=== PATIENT | male | born 1950 | race Caucasian/White ===

== ENCOUNTER 2016-07-04 12:08 | Emergency (ER) | payer MEDICARE ==
[~2016-07-04] VITALS: Ht 182.9 cm; Wt 112.3 kg
[~2016-07-04 12:08] MED LIST: ASPI-973 PO; CHOL3000 PO; FUR20 PO; IBUP800T28 PO; INSU100I SC; INSU100I13 SUBQ; LOSA25TA21 PO; METF500T4 PO; METO25TA6 PO; PRAV40TA PO; TAMS0.4C98 PO
[2016-07-04 12:11] VITALS: BP 163/89; PULSE 81; RESP 15; O2SAT 100
--- NOTE | 2016-07-04 13:01 | ED.REPORT ---
HPI-Psychiatric Illness Date of Service Jul 04, 2016 ED Provider: Pollo Palmer MD Mr. Faulkner is a 66 y/o man who presents today for suicidal ideation. He was talking to his creative technologist this morning who encouraged him to seek help in the emergency department or he would call 911. For the past week or so, he has been feeling like if he killed himself no one would notice. He has these thoughts every day at night. He could use the insulin and take too much. The plan comes and goes in his mind. He has been feeling this way for the past 8 months. He states that he is very independent given the circumstances and does not like getting help from others. He has found it increasingly hard to do somethings like tie his shoes, which causes him additional emotional stress. The only thing keeping him alive is his 90 y/o mother for whom he is the primary caregiver. He also takes care of his sister, which causes him stress. His 6 years ago and he has not had a significant other since then. His spiritual connection is the outdoors. He has spent less time outdoors with his own surgeries and then his grandson at 17 y/o in an accident a week before his birthday. His son lives in [facility] but is planning to visit in July. He lives in his car for the past year and has been trying to get housing the entire time. He cannot climb stairs. 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 It is getting harder for him to swim. He has not sought help before. He is not able to sleep and has a decreased appetite for junk foods. Little things are starting to bother him more and more , everything is starting to pile on. He lost interest in things he used to like. He feels guilty that "I've been letting my friends down." He has forgetfulness and ridicules himself. He states that he does not even want to be here right now so he is unsure about staying in the hospital for treatment. Physically he has a decreased appetite and urinary urgency with urinary incontinence if he does not make it to the bathroom in time. He has chronic lower extremity edema for which he takes furosemide. Nursing Notes Stated Complaint: SUICIDAL IDEATION Chief Complaint: Psychiatric Complaint Nursing Notes Reviewed: Yes Allergies: Coded Allergies: Penicillins (Verified Allergy, Severe, ANAPHYLAXIS, 07/04/16) Scheduled Aspirin (Aspirin) 81 Mg Tablet 81 MG PO DAILY Furosemide (Furosemide) 20 Mg Tab 20 MG PO DAILY Ibuprofen (Ibuprofen) 800 Mg Tablet 800 MG PO BID Insulin Aspart (NovoLOG U-100 Pen) 100 Unit/Ml Insuln.pen 17-27 UNIT SC AC Insulin Glargine (Lantus U100 Solostar Insulin Pen) 100 Unit/1 Ml Insuln.pen 10 UNIT SUBQ HS Losartan Potassium (Losartan Potassium) 25 Mg Tablet 50 MG PO DAILY Metformin (Metformin) 500 Mg Tablet 500 MG PO BID Metoprolol Tartrate (Metoprolol Tartrate) 25 Mg Tablet 25 MG PO BID Pravastatin (Pravastatin) 40 Mg Tablet 40 MG PO HS Tamsulosin (Flomax) 0.4 Mg Capsule 0.4 MG PO DAILY Miscellaneous Medications Cholecalciferol (Vitamin D3) (Vitamin D3) 3,000 Unit Tablet 3,000 UNIT PO General Time Seen by MD: 12:41 Chief Complaint Suicidal ideation Hx Obtained From: Patient Risk-Psychiatric Illness Suicide Risk Stratification Suicide Risk Factors - Adult: No: Alcohol use, Family Hx of Suicide, Previous attempt, Prior psych admission, Substance abuse RF Statements: Risk factors reviewed Past Medical History Past Medical History Chronic right knee pain, 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 home health coming in- scheduled for 04/02- day after tomorrow Ambulatory Status Independent Review of Systems Constitutional: Reports: Fatigue Respiratory: Denies: Shortness of breath Cardiovascular: Denies: Chest pain GI: Reports: Abdominal pain, Denies: Diarrhea, Vomiting Skin: Reports Itching (generalized, dry skin), Denies Bruising, Denies Rash Neurologic: Reports: Bladder dysfunction, Numbness (in bilateral hands) Psychiatric: Reports: Anxiety, Depression, Insomnia, Stress, Suicidal ideation , Denies: Delusional, Hallucinations, auditory, Hallucinations, visual, Homicidal ideation Physical Exam Initial Vital Signs Vital Signs (First) Date Time Temp Pulse Resp B/P Pulse Ox O2 Delivery O2 Flow Rate FiO2 07/04/16 12:11 36.1 81 15 163/89 100 Initial VS: Reviewed Head / Eyes: Atraumatic, Normocephalic ENT: Mucous membranes moist, Conjunctiva normal, No scleral icterus Neck: Supple, Non-tender, Full range of motion Respiratory: Breath sounds normal, Clear to auscultation, No respiratory distress Cardiovascular: Regular rate & rhythm, Heart sounds normal, Intact distal pulses Abdomen / GI: Soft, Non-tender, No guarding, No rebound, No distention Skin: Warm, Dry, No cyanosis Right Leg / Calf: Positive: Swelling present... (Mild) Left Leg / Calf: Positive: Swelling present... (Mild) Interpretation & Diagnostics Interpretation & Diagnostics: Urine tox dip: Benzodiazepines (BZO) Negative Barbituates (BAR) Negative Cocaine (KORY) Negative Marijuana (THC) Negative Methamphetamine (MET) Negative Opiates (OPI) Negative Methadone (MTD) Negative Tricyclic Antidepressants (TCA) Negative Oxycodone (OXY) Negative Ecstasy (MDMA) Negative Phencyclidine (PCP) Negative Amphetamines (AMP) Negative Urine dip: Reagent Strip Chemstrip 10 with SG Bedside Urine Specific Excel 1.010 Bedside Urine pH 5 Bedside Urine Leukocyte Esterase Negative Bedside Urine Nitrite Negative Bedside Urine Protein Negative Bedside Urine Glucose Normal Bedside Urine Ketones + Small Bedside Urine Urobilinogen Normal Bedside Urine Bilirubin Negative Bedside Urine Occult Blood Trace Urine to Lab Yes Lab Results Interpretation Test 07/04/16 13:44 Hold Urine Received (Received) Re-Eval/Medical Decision Med Decision/Clinical Course 1. Suicidal ideation -He has a plan to take too much insulin -Pt denies homicidal ideation -Pt is actively seeking help -solid waste collection worker consult in progress -Urine toxicity dip is negative -Alcohol breathalizer 0 2. urinary incontinence -Pt had urteral stones in March and April 2016 Consultation : Consulted With: solid waste collection worker Note: Discussed pt with long term care social worker, Lorena Longo, and she recommends inpatient treatment for the pt. DDx includes but not limited to: major depressive disorder, dysthymia, bipolar disorder, anxiety, personality disorder Discharge & Departure Impression: Primary Impression: Suicidal ideation Referrals: Frannie Chi MD (PCP) Care Transferred to: Dr. Rowland Care Transferred at: 15:17 Attending Statement The patient was seen and examined together with Dr. Pollack on 07/04/16 and I agree with the history, exam and plan as outlined in the note above. copies to: Frannie Chi MD, Marissa L DO Jul 04, 2016 13:01 Pollo Palmer MD Jul 04, 2016 15:17
[2016-07-04 15:31] LABS: BASOPHILS % (AUTO) 0 % (0-3); EOSINOPHILS % (AUTO) 5.9 % (0-5); MONOCYTES % (AUTO) 8.4 % (4-12); Mean Corpuscular Hemoglobin 29.3 pg (27.0-35.0); Mean Corpuscular Volume 87.1 fL (81-100); NEUTROPHILS % (AUTO) 61.3 % (40-74); Platelet Count 166 bil/L (150-400)
[2016-07-04 16:14] LABS: APPEARANCE,URINE CLEAR (CLEAR,HAZY); COLOR,URINE YELLOW (YELLOW)
[2016-07-04 16:15] LABS: OCCULT BLOOD,URINE NEGATIVE (NEGATIVE); UROBILINOGEN,URINE NORMAL (NORMAL)
[2016-07-04] MEDS ORDERED: INSLIS SUBQ (17:31)
[2016-07-04] MEDS ORDERED: Insulin LISPRO 300 Unit/3 mL Inj SUBQ ONE (17:35)
[2016-07-04 17:44] VITALS: BP 151/59; PULSE 73; RESP 20; O2SAT 95
[2016-07-04] MEDS ORDERED: METF-413 PO (19:43)
[2016-07-04] MEDS ORDERED: LOSA50TA37 PO (19:43)
[2016-07-04] MEDS ORDERED: LORA10CA PO (19:58)
[2016-07-04] MEDS ORDERED: [UNRECOGNIZED DRUG - CODE] PO (20:44)
[2016-07-04] MEDS ORDERED: Insulin GLARgine 100 Unit/mL Syringe SUBQ SCH (21:00)
[2016-07-04 23:17] VITALS: BP 134/65; PULSE 67; RESP 18; O2SAT 94
[2016-07-04 23:28] VITALS: BP 134/65; PULSE 67; RESP 18; O2SAT 94
== END 2016-07-04 23:29 | disposition short-term general hospital (02) ==
LOC: SED 12:08
DX: F32.9 Major depressive disorder, single episode, unspecified (principal); R45.851 Suicidal ideations; E11.9 Type 2 diabetes mellitus without complications; E78.5 Hyperlipidemia, unspecified; I10 Essential (primary) hypertension; I65.29 Occlusion and stenosis of unspecified carotid artery; Z86.73 Personal history of transient ischemic attack (TIA), and cerebral infarction without residual deficits; Z59.0 Homelessness; Z79.82 Long term (current) use of aspirin; Z79.4 Long term (current) use of insulin; Z79.84 Long term (current) use of oral hypoglycemic drugs; Z88.0 Allergy status to penicillin
CPT/HCPCS: 36415; 80053; 81000; 82075; 82948; 84443; 85025; 99285; J1815

== ENCOUNTER 2016-07-28 13:21 | Emergency (ER) | payer MEDICARE ==
[~2016-07-28] VITALS: Ht 182.9 cm; Wt 110.9 kg
[~2016-07-28 13:21] MED LIST changes: +INSLIS SUBQ; -INSU100I SC; +LORA10CA PO; -LOSA25TA21 PO; +LOSA50TA37 PO; +METF-413 PO; -METF500T4 PO; -TAMS0.4C98 PO; +[UNRECOGNIZED DRUG - CODE] PO
[2016-07-28 13:24] VITALS: BP 172/84; PULSE 87; RESP 10; O2SAT 91
--- NOTE | 2016-07-28 13:42 | ED.REPORT ---
HPI-URI / Cough / Cold Date of Service Jul 28, 2016 ED Provider: Ruby Elliott History of Present Illness: coughing, wheezing headache for 3 or 4 days. Settled in chest. bought mucinex. no help. [facility] is primary care. no hx of asthma. not sleeping well. dm takes insulin, right knee replacement. decreased oral intake decreased bowel movement prune juice no help Nursing Notes Stated Complaint: COLD SYMPTOMS Chief Complaint: Respiratory Complaints Nursing Notes Reviewed: Yes Allergies: Coded Allergies: Penicillins (Verified Allergy, Severe, ANAPHYLAXIS, 07/04/16) Scheduled Aspirin (Aspirin) 81 Mg Tablet 81 MG PO HS Cholecalciferol (Vitamin D3) (Vitamin D3) 3,000 Unit Tablet 3,000 UNIT PO QAM Furosemide (Furosemide) 20 Mg Tab 20 MG PO QAM Ibuprofen (Ibuprofen) 800 Mg Tablet 800 MG PO BID Insulin Glargine (Lantus U100 Solostar Insulin Pen) 100 Unit/1 Ml Insuln.pen 10 UNIT SUBQ HS Insulin Human Lispro (HumaLOG U100 Insulin Vial) 100 Unit/Ml Unit 1 UNIT SUBQ ACHS Check blood sugars before meals and at bedtime. Use correction factor only before meals. Blood Sugar Lispro Correction: 4 units 100-128, 8 units 128-180, 12-15 units for blood sugar greater than 180 depending on meals Loratadine (Claritin) 10 Mg Capsule 10 MG PO QAM Losartan Potassium (Losartan Potassium) 50 Mg Tablet 50 MG PO HS Metformin ER (Fortamet) 1,000 Mg Tab.er.24 1,000 MG PO BID Metoprolol Tartrate (Metoprolol Tartrate) 25 Mg Tablet 25 MG PO BID Phenylephrine HCl (Sinus PE Decongestant) 10 Mg Tablet 10 MG PO HS Pravastatin (Pravastatin) 40 Mg Tablet 40 MG PO HS General Time Seen by MD: 13:32 Chief Complaint Cough, productive... 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 07/28/2016 Ambulatory Status Independent Review of Systems Basic Review of Systems Cardiovascular: No chest pain, No dyspnea on exertion, No orthopnea, No parox noct dyspnea, No palpitations Hematologic: No bleeding, No bruising Psychiatric: Normal thought content Physical Exam Initial Vital Signs Vital Signs (First) Date Time Temp Pulse Resp B/P Pulse Ox O2 Delivery O2 Flow Rate FiO2 07/28/16 13:24 37.4 87 10 172/84 91 Room Air Initial VS: Reviewed, Vital signs normal Head / Eyes: Atraumatic, Normocephalic, PERRL Neck: Supple, Non-tender, Full range of motion Cardiovascular: Regular rate & rhythm, Heart sounds normal, Intact distal pulses Abdomen / GI: Soft, Non-tender, No guarding, No rebound, No distention Back: No CVA tenderness Lymphatic: No lymphadenopathy Extremities: Vascular intact, Neuro intact, No swelling, No tenderness Skin: Warm, Dry, No cyanosis Neurologic: Alert, Oriented, Nonfocal Psychiatric: Mood/affect normal, Behavior normal, Normal thought content General/Constitutional: Awake, Alert, No acute distress, Well appearing, Well developed, Well hydrated, Well nourished, Cooperative, Not toxic appearing ENT: Atraumatic, Airway patent, Mucous membranes moist, Pharynx NL Diminished Breath Sounds: Positive: Decreased bilateral Rales / Rhonchi: Positive: Rhonchi coarse L, Rhonchi coarse R Head / Eyes: Atraumatic, Normocephalic, PERRL, EOMI Cardiovascular: Heart rate NL, Regular rhythm, Heart sounds NL, No gallop Interpretation & Diagnostics Lab Results Interpretation Result Diagram: 07/28/16 1400 07/28/16 1400 Test 07/28/16 14:00 White Blood Count 5.3th/mm3 (3.8-10.1) Red Blood Count 4.69mil/mm3 (4.40-5.80) Hemoglobin 13.5g/dL (13.8-17.2) Hematocrit 40.7% (41.0-50.0) Mean Corpuscular Volume 86.8fL (81-100) Mean Corpuscular Hemoglobin 28.8pg (27.0-35.0) Mean Corpuscular Hemoglobin Concent 33.2% (32.0-37.0) Red Cell Distribution Width 13.9% (12.3-15.4) Platelet Count 152bil/L (150-400) Neutrophils (%) (Auto) 70.8% (40-74) Lymphocytes (%) (Auto) 14.8% (14-46) Monocytes (%) (Auto) 9.1% (4-12) Eosinophils (%) (Auto) 4.9% (0-5) Basophils (%) (Auto) 0.2% (0-3) Sodium Level 138mEq/L (134-144) Potassium Level 3.9mEq/L (3.5-5.2) Chloride Level 99mEq/L (97-108) Carbon Dioxide Level 23mmol/L (18-29) Blood Urea Nitrogen 21mg/dL (8-27) Creatinine 0.93mg/dL (0.76-1.27) Estimat Glomerular Filtration Rate 86mL/min (>59) Glucose Level 185mg/dL (60-99) Lactic Acid Level 1.7mmol/L (0.4-2.0) Calcium Level 8.9mg/dL (8.5-10.1) Total Bilirubin 0.5mg/dL (0.0-1.2) Aspartate Amino Transf (AST/SGOT) 15U/L (0-50) Alanine Aminotransferase (ALT/SGPT) 17U/L (0-44) Alkaline Phosphatase 56U/L (25-160) Total Protein 6.9g/dL (6.4-8.4) Albumin 4.5g/dL (3.4-5.0) X-Ray Chest Interpretation Chest Xray Interpretation: nges and devices: None. Lungs and pleura: No pleural effusions or pneumothorax. Lungs are clear except for a subtle infiltrate in the right lower lobe. Mediastinum: Mediastinal contours are normal. Heart size is normal. Bones and chest wall: No suspicious bony abnormalities. Soft tissues appear unremarkable. IMPRESSION: Infiltrate right lower lobe thought to be present with some increased density over the thoracic spine and indistinctness of the right hemidiaphragm seen only in the lateral view. Re-Eval/Medical Decision Med Decision/Clinical Course Med Decision/Clinical Course: 66 year old male presents for evualation of cough. Patient reports huge improvement after duoneb. Chest x-ray indicates pneumonia. Exam does not indicate an empyema, asthma or pneumothorax. Discharge & Departure Impression: Primary Impression: Pneumonia Aspiration pneumonia type: unspecified Laterality: right Lung location: lower lobe of lung Disposition: Home Patient Instructions: Community-acquired Pneumonia (ED) Additional Instructions: The chest x-ray indicates a right lower lobe pneumonia.. Start azithromycin daily for the next 5 days. You have had a huge improvement in your lung function with the nebulizer. You are being provided an inhaler with the same medication. Also a small amount of hydrocodone to take at night to help with the cough. #6. Please follow with primary care for a recheck later this week. REIMBURSEMENT ANALYST has provided some resources that provide meals Referrals: Frannie Chi MD (PCP) EDSupervising Provider for APC: Shiv Rowland MD copies to: Frannie Chi MD, Sue ARNP Jul 28, 2016 13:42
[2016-07-28] MEDS ORDERED: Albuterol-Ipratropium 3 mL Inhalation Solution NEB ONE (13:45)
[2016-07-28 14:02] VITALS: PULSE 85; RESP 14; O2SAT 96
[2016-07-28 14:03] LABS: BASOPHILS % (AUTO) 0.2 % (0-3); EOSINOPHILS % (AUTO) 4.9 % (0-5); MONOCYTES % (AUTO) 9.1 % (4-12); Mean Corpuscular Hemoglobin 28.8 pg (27.0-35.0); Mean Corpuscular Volume 86.8 fL (81-100); NEUTROPHILS % (AUTO) 70.8 % (40-74); Platelet Count 152 bil/L (150-400)
--- NOTE | 2016-07-28 15:04 | DRSVH ---
PROCEDURE: X-RAY CHEST, TWO VIEWS ([id number]) INDICATIONS: cough TECHNIQUE: 2 views of the chest were acquired. COMPARISON: None. FINDINGS: Surgical changes and devices: None. Lungs and pleura: No pleural effusions or pneumothorax. Lungs are clear except for a subtle infiltr ate in the right lower lobe. Mediastinum: Mediastinal contours are normal. Heart size is normal. Bones and chest wall: No suspicious bony abnormalities. Soft tissues appear unremarkable. IMPRESSION: Infiltrate right lower lobe thought to be present with some increased density over the th oracic spine and indistinctness of the right hemidiaphragm seen only in the lateral view. Dictated by: Isrrael Grider M.D. on 07/28/2016 at 15:01 Approved by: Isrrael Grider M.D. on 07/28/2016 at 15:02
[2016-07-28 15:18] VITALS: BP 154/77; PULSE 95; RESP 16; O2SAT 98
[2016-07-28 15:28] VITALS: BP 154/77; PULSE 95; RESP 16; O2SAT 98
== END 2016-07-28 15:20 | disposition home or self-care (01) ==
LOC: SED 13:21
DX: J18.9 Pneumonia, unspecified organism (principal); E11.9 Type 2 diabetes mellitus without complications; I10 Essential (primary) hypertension; Z79.899 Other long term (current) drug therapy; Z86.73 Personal history of transient ischemic attack (TIA), and cerebral infarction without residual deficits; Z59.0 Homelessness; Z88.0 Allergy status to penicillin; Z79.4 Long term (current) use of insulin; Z79.84 Long term (current) use of oral hypoglycemic drugs
CPT/HCPCS: 36415; 71020; 80053; 83605; 85025; 94664; 99284; J7620

== ENCOUNTER 2016-08-21 06:36 | Emergency (ER) | payer MEDICARE ==
[2016-08-21 06:47] VITALS: BP 153/86; PULSE 76; RESP 14; O2SAT 94
[2016-08-21] MEDS ORDERED: 0.9% Sodium Chloride 1,000 ML IV ONE (07:37)
--- NOTE | 2016-08-21 07:37 | ED.REPORT ---
HPI-Abd Pain M 40 and Over Date of Service Aug 21, 2016 ED Provider: Doc,Ed MD The patient is a 66 year old male with history of diabetes mellitus, hypertension, and hyperlipidemia who presents to the emergency department complaining of vomiting that began yesterday afternoon. He has been unable to keep fluids or solids down. He has not had a bowel movement since yesterday. He has not been passing gas. He denies abdominal pain, nausea, diarrhea, fever or chills. He has not had similar symptoms in the past. The patient is currently homeless and living in his car. He has been in his car for the last 7 months after he was evicted from a room he was renting. He reports feeling depressed due to his physical condition and current living situation. Nursing Notes Stated Complaint: VOMITING Chief Complaint: General Complaint Nursing Notes Reviewed: Yes Allergies: Coded Allergies: Penicillins (Verified Allergy, Severe, ANAPHYLAXIS, 08/21/16) Scheduled Aspirin (Aspirin) 81 Mg Tablet 81 MG PO HS Cholecalciferol (Vitamin D3) (Vitamin D3) 3,000 Unit Tablet 3,000 UNIT PO QAM Furosemide (Furosemide) 20 Mg Tab 20 MG PO QAM Ibuprofen (Ibuprofen) 800 Mg Tablet 800 MG PO BID Insulin Glargine (Lantus U100 Solostar Insulin Pen) 100 Unit/1 Ml Insuln.pen 10 UNIT SUBQ HS Insulin Human Lispro (HumaLOG U100 Insulin Vial) 100 Unit/Ml Unit 1 UNIT SUBQ ACHS Check blood sugars before meals and at bedtime. Use correction factor only before meals. Blood Sugar Lispro Correction: 4 units 100-128, 8 units 128-180, 12-15 units for blood sugar greater than 180 depending on meals Loratadine (Claritin) 10 Mg Capsule 10 MG PO QAM Losartan Potassium (Losartan Potassium) 50 Mg Tablet 50 MG PO HS Metformin ER (Fortamet) 1,000 Mg Tab.er.24 1,000 MG PO BID Metoprolol Tartrate (Metoprolol Tartrate) 25 Mg Tablet 25 MG PO BID Phenylephrine HCl (Sinus PE Decongestant) 10 Mg Tablet 10 MG PO HS Pravastatin (Pravastatin) 40 Mg Tablet 40 MG PO HS General Time Seen by MD: 07:36 Chief Complaint Other (vomiting) Hx Obtained From: Patient Arrived By: Walk-in Sudden in Onset?: Yes Onset Occurred: Yesterday Symptom Duration: Since onset Progression since Onset: Constant, Gradually worsening Severity: Current: No pain currently Severity: Maximum: No pain Recent Healthcare: No recent doctor visit, No recent hospitalization Similar Sx Previous: No Past Medical History Past Medical History Chronic right knee pain, 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 Carotid artery stenosis s/p endarterectomy Reports: Diabetes mellitus, Hyperlipidemia, Hypertension, Stroke Past Surgical History Right knee surgery- with metallic patella Wrist surgery Right carotid endarterectomy with shunt and patch Reports: Tonsillectomy Family History Noncontributory Smoking History Never Smoker Social History The patient is currently living in his car Alcohol Use: Denies alcohol use Drug Use: Denies drug use Other Social History: Local resident, Homeless Occupation Ambulatory Status Independent Review of Systems Review of Systems Note: no bowel movements, not passing gas Constitutional: Denies: Chills, Fever GI: Reports: Vomiting, Denies: Abdominal pain, Diarrhea, Nausea Complete sys rev & neg: except as marked. Psychiatric: Reports: Depression, Stress Physical Exam Initial Vital Signs Vital Signs (First) Date Time Temp Pulse Resp B/P Pulse Ox O2 Delivery O2 Flow Rate FiO2 08/21/16 06:47 36.3 76 14 153/86 94 Room Air Initial VS: Reviewed Head / Eyes: Atraumatic, Normocephalic, PERRL ENT: Mucous membranes moist, Conjunctiva normal, No scleral icterus Neck: Supple, Non-tender, Full range of motion Lymphatic: No lymphadenopathy Extremities: Vascular intact, Neuro intact, No swelling, No tenderness Skin: Warm, Dry, No cyanosis Neurologic: Alert, Oriented, Nonfocal Psychiatric: Mood/affect normal, Behavior normal, Normal thought content General/Constitutional: Awake, Alert, No acute distress, Cooperative Respiratory / Chest: Atraumatic, Breath sounds NL, Breath sounds = bilat, No respiratory distress, No rales, No rhonchi, No wheezing Cardiovascular: Heart rate NL, Regular rhythm, Heart sounds NL, No gallop, No murmurs, No rubs, Peripheral circulation NL Abdomen: Atraumatic, Soft, Non-tender, McBurney's non-tender, No guarding, No rebound, BS normoactive, No distention, No hernia, No palpable mass, No pulsatile mass Back: Inspection NL, Non-tender, No CVA tenderness Interpretation & Diagnostics Lab Results Interpretation Result Diagram: 08/21/16 0805 08/21/16 0805 Test 08/21/16 08:05 White Blood Count 3.6th/mm3 (3.8-10.1) Red Blood Count 4.78mil/mm3 (4.40-5.80) Hemoglobin 13.7g/dL (13.8-17.2) Hematocrit 41.2% (41.0-50.0) Mean Corpuscular Volume 86.2fL (81-100) Mean Corpuscular Hemoglobin 28.7pg (27.0-35.0) Mean Corpuscular Hemoglobin Concent 33.3% (32.0-37.0) Red Cell Distribution Width 14.5% (12.3-15.4) Platelet Count 154bil/L (150-400) Neutrophils (%) (Auto) 66.5% (40-74) Lymphocytes (%) (Auto) 19.4% (14-46) Monocytes (%) (Auto) 9.6% (4-12) Eosinophils (%) (Auto) 4.5% (0-5) Basophils (%) (Auto) 0% (0-3) Sodium Level 138mEq/L (134-144) Potassium Level 4.0mEq/L (3.5-5.2) Chloride Level 100mEq/L (97-108) Carbon Dioxide Level 23mmol/L (18-29) Blood Urea Nitrogen 21mg/dL (8-27) Creatinine 0.85mg/dL (0.76-1.27) Estimat Glomerular Filtration Rate 95mL/min (>59) Glucose Level 251mg/dL (60-99) Calcium Level 8.9mg/dL (8.5-10.1) Magnesium Level 1.6mg/dL (1.6-2.6) Total Bilirubin 0.4mg/dL (0.0-1.2) Aspartate Amino Transf (AST/SGOT) 19U/L (0-50) Alanine Aminotransferase (ALT/SGPT) 24U/L (0-44) Alkaline Phosphatase 54U/L (25-160) Total Protein 7.0g/dL (6.4-8.4) Albumin 4.4g/dL (3.4-5.0) Lipase 13U/L (13-60) X-Ray Abdominal Interpretation IMPRESSION: No acute disease process identified. Dictated by: Светлана Eaton MD, PhD on 08/21/2016 at 9:25 Interpretation / Wet Read by: Interpret - Radiologist Re-Eval/Medical Decision Source of Hx: Old records Time of Eval: 09:38 Re-Evaluation/Progress Note: Rechecked the patient. He has not had any episodes of vomiting since he has been in the department. He denies any nausea or pain. Discussed results, diagnosis, and plan for discharge. All questions were addressed. Counseled Regarding: Diagnosis, Lab results, Need for follow-up, When/why to return to ED Discharge & Departure Primary Impression: Vomiting Vomiting type: unspecified Vomiting Intractability: non-intractable Nausea presence: without nausea Qualified Code: R11.11 - Vomiting without nausea Disposition: Home Vital Signs - All Vital Signs Date Time Temp Pulse Resp B/P Pulse Ox O2 Delivery O2 Flow Rate FiO2 08/21/16 06:47 36.3 76 14 153/86 94 Room Air )( All Prior VS Reviewed: Yes Condition: Stable Patient Instructions: Acute Nausea and Vomiting (ED) Additional Instructions: Thank you for entrusting us with your care today. Your lab and x-ray results today are reassuring. Use the Reglan as prescribed. Make sure to drink plenty of fluids. Take small sips of fluid at a time. I recommend sticking to a liquid diet over the next 24 hours. We have scheduled you an appointment with Dr. Leiva on Wednesday 08/23 at 10:30 a.m, check in at 10:15 a.m. Please return to the emergency department if you develop severe pain, uncontrollable vomiting, fever , or any other new or concerning symptoms. Referrals: Frannie Chi MD (PCP) Scribe Attestation Portions of this note were transcribed by Mai Gupta. I, Dr. Palmer personally performed the history, physical exam and medical decision-making; I reviewed and confirmed the accuracy of the information in the transcribed note. Signed by: Rogelio Epstein, 08/21/2016 at 1000. copies to: Frannie Chi MD, Kirk H MD Aug 21, 2016 07:37 Mai Gupta Aug 21, 2016 07:39
[2016-08-21] MEDS ORDERED: HYDROmorphone 0.5 mg/0.5 mL iSecure Syringe IVPUSH PRN (07:40)
[2016-08-21] MEDS ORDERED: Ondansetron 2 mg/mL 2 mL Inj IVPUSH PRN (07:40)
[2016-08-21 08:23] LABS: BASOPHILS % (AUTO) 0 % (0-3); EOSINOPHILS % (AUTO) 4.5 % (0-5); MONOCYTES % (AUTO) 9.6 % (4-12); Mean Corpuscular Hemoglobin 28.7 pg (27.0-35.0); Mean Corpuscular Volume 86.2 fL (81-100); NEUTROPHILS % (AUTO) 66.5 % (40-74); Platelet Count 154 bil/L (150-400)
[2016-08-21 08:45] LABS: Magnesium 1.6 mg/dL (1.6-2.6)
--- NOTE | 2016-08-21 09:27 | DRSVH ---
PROCEDURE: X-RAY ACUTE ABDOMINAL SERIES ([id number]) INDICATIONS: vomiting TECHNIQUE: One view chest and two views of the abdomen were acquired. COMPARISON: None. FINDINGS: Surgical changes and devices: None. Chest: Lungs are clear. Heart size is normal. No pleural effusions. No pneumoperitoneum. Abdomen: Bowel gas pattern is normal. No suspicious calcifications. Visualized solid organ contour s appear normal. Bones: No suspicious bony lesions. IMPRESSION: No acute disease process identified. Dictated by: Светлана Eaton MD, PhD on 08/21/2016 at 9:25 Approved by: Светлана Eaton MD, PhD on 08/21/2016 at 9:26
[2016-08-21] MEDS ORDERED: METO5TAB78 PO (09:53)
[2016-08-21 10:16] VITALS: BP 157/68; PULSE 68; RESP 14; O2SAT 97
[2016-08-21 10:19] VITALS: BP 157/68; PULSE 68; RESP 14; O2SAT 97
== END 2016-08-21 10:19 | disposition home or self-care (01) ==
LOC: SED 06:36
DX: R11.11 Vomiting without nausea (principal); E11.9 Type 2 diabetes mellitus without complications; I10 Essential (primary) hypertension; E78.5 Hyperlipidemia, unspecified; Z86.73 Personal history of transient ischemic attack (TIA), and cerebral infarction without residual deficits; Z79.4 Long term (current) use of insulin; Z79.82 Long term (current) use of aspirin; Z79.84 Long term (current) use of oral hypoglycemic drugs; Z59.0 Homelessness; Z88.0 Allergy status to penicillin
CPT/HCPCS: 36415; 74022; 80053; 82948; 83690; 83735; 85025; 96361; 96374; 99284; J2405; J7030

== ENCOUNTER 2016-08-29 10:56 | Emergency (ER) | payer MEDICARE ==
[~2016-08-29] VITALS: Ht 182.9 cm; Wt 110.9 kg
[~2016-08-29 10:56] MED LIST changes: +METO5TAB78 PO
[2016-08-29 10:58] VITALS: BP 151/81; PULSE 67; RESP 16; O2SAT 95
[2016-08-29] MEDS ORDERED: HYDR50TA76 PO (11:04)
[2016-08-29] MEDS ORDERED: CITA10TA9 PO (11:04)
[2016-08-29] MEDS ORDERED: TRAZ-115 PO (11:04)
[2016-08-29] MEDS ORDERED: 0.9% Sodium Chloride 1,000 ML IV ONE (11:18)
--- NOTE | 2016-08-29 11:29 | ED.REPORT ---
HPI-Abd Pain M 40 and Over Date of Service Aug 29, 2016 ED Provider: Too Bruno PA-C [place] is a 58-year-old male with history of diabetes and hypertension who presents with a chief complaint of lower abdominal cramping. He states the pain was intermittent in a band across his lower abdomen. He rates it a 4 out of 10. States the pain began suddenly while he was driving near the hospital. He said it happened perhaps once every 5 minutes for the last 15 minutes. Pain is relieved by holding his right hip in flexion and is aggravated by extending the leg. Reports a recent history of gastritis, pneumonia treated with antibiotics in the last 2 weeks. He has also recently had watery diarrhea without blood. Last episode 2 days ago. Admits to fatigue as well as left leg edema has been present for 7 months which is followed at [facility]. Denies current vomiting, fever, chills, urinary symptoms. Denies history of abdominal surgeries, hyperlipidemia, coronary artery disease. Review of records indicates history of carotid artery stenosis. Nursing Notes Stated Complaint: ABDOMINAL PAIN Chief Complaint: Male Abdominal Pain Nursing Notes Reviewed: Yes Allergies: Coded Allergies: Penicillins (Verified Allergy, Severe, ANAPHYLAXIS, 08/29/16) Scheduled Aspirin (Aspirin) 81 Mg Tablet 81 MG PO HS Cholecalciferol (Vitamin D3) (Vitamin D3) 3,000 Unit Tablet 3,000 UNIT PO QAM Citalopram (Citalopram) 10 Mg Tablet 10 MG PO DAILY Furosemide (Furosemide) 20 Mg Tab 20 MG PO QAM Hydroxyzine HCl (HydrOXYzine Hcl) 50 Mg Tablet 50 MG PO BID Ibuprofen (Ibuprofen) 800 Mg Tablet 800 MG PO BID Insulin Human Lispro (HumaLOG U100 Insulin Vial) 100 Unit/Ml Unit 1 UNIT SUBQ ACHS Check blood sugars before meals and at bedtime. Use correction factor only before meals. Blood Sugar Lispro Correction: 4 units 100-128, 8 units 128-180, 12-15 units for blood sugar greater than 180 depending on meals Loratadine (Claritin) 10 Mg Capsule 10 MG PO QAM Losartan Potassium (Losartan Potassium) 50 Mg Tablet 50 MG PO HS Metformin ER (Fortamet) 1,000 Mg Tab.er.24 1,000 MG PO BID Metoprolol Tartrate (Metoprolol Tartrate) 25 Mg Tablet 25 MG PO BID Phenylephrine HCl (Sinus PE Decongestant) 10 Mg Tablet 10 MG PO HS Pravastatin (Pravastatin) 40 Mg Tablet 40 MG PO HS Trazodone (Trazodone) 50 Mg Tablet 50 MG PO HS General Time Seen by MD: 11:07 Chief Complaint Abdominal pain Sudden in Onset?: Yes Past Medical History Past Medical History Chronic right knee pain, 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 Carotid artery stenosis s/p endarterectomy Reports: Diabetes mellitus, Hyperlipidemia, Hypertension, Stroke Past Surgical History Right knee surgery- with metallic patella Wrist surgery Right carotid endarterectomy with shunt and patch Reports: Tonsillectomy Family History Noncontributory Smoking History Never Smoker Social History The patient is currently living in his car Alcohol Use: Denies alcohol use Drug Use: Denies drug use Other Social History: Local resident, Homeless Occupation Ambulatory Status Independent Review of Systems Negative unless stated otherwise in history of present illness Physical Exam General: Well appearing, well developed, well nourished, no acute distress. Head: Atraumatic, normocephalic. Eyes: No scleral icterus or injection. No discharge. Vision grossly intact. ENT: Voice clear, hearing grossly intact. Membranes slightly tacky. Respiratory: Regular rate and rhythm. Breath sounds present, clear to auscultation and equal bilaterally. No respiratory distress. No increased work of breathing, speaks in complete sentences. Cardiovascular: Regular rate and rhythm, without murmur, gallop or rub. No pedal edema. Gastrointestinal: Abdomen flat and non-tender without guarding or rebound. Bowel sounds normoactive. Skin: Warm and dry. Left leg: +1 pitting edema Neurological: Grossly nonfocal. Psychological: Alert and oriented. Speech appropriate, linear and logical. Behavior appropriate. Initial Vital Signs Vital Signs (First) Date Time Temp Pulse Resp B/P Pulse Ox O2 Delivery O2 Flow Rate FiO2 08/29/16 10:58 36.2 67 16 151/81 95 Room Air Initial VS: Reviewed, Vital signs normal Interpretation & Diagnostics Lab Results Interpretation Result Diagram: 08/29/16 1125 08/29/16 1125 Test 08/29/16 11:25 08/29/16 11:37 White Blood Count 3.7th/mm3 (3.8-10.1) Red Blood Count 4.82mil/mm3 (4.40-5.80) Hemoglobin 13.9g/dL (13.8-17.2) Hematocrit 40.5% (41.0-50.0) Mean Corpuscular Volume 84.0fL (81-100) Mean Corpuscular Hemoglobin 28.8pg (27.0-35.0) Mean Corpuscular Hemoglobin Concent 34.3% (32.0-37.0) Red Cell Distribution Width 14.5% (12.3-15.4) Platelet Count 158bil/L (150-400) Neutrophils (%) (Auto) 54.4% (40-74) Lymphocytes (%) (Auto) 30.5% (14-46) Monocytes (%) (Auto) 7.4% (4-12) Eosinophils (%) (Auto) 7.1% (0-5) Basophils (%) (Auto) 0.3% (0-3) Sodium Level 142mEq/L (134-144) Potassium Level 3.9mEq/L (3.5-5.2) Chloride Level 104mEq/L (97-108) Carbon Dioxide Level 22mmol/L (18-29) Blood Urea Nitrogen 17mg/dL (8-27) Creatinine 0.99mg/dL (0.76-1.27) Estimat Glomerular Filtration Rate 80mL/min (>59) Glucose Level 114mg/dL (60-99) Calcium Level 9.8mg/dL (8.5-10.1) Total Bilirubin 0.3mg/dL (0.0-1.2) Aspartate Amino Transf (AST/SGOT) 24U/L (0-50) Alanine Aminotransferase (ALT/SGPT) 29U/L (0-44) Alkaline Phosphatase 58U/L (25-160) Total Protein 7.2g/dL (6.4-8.4) Albumin 4.2g/dL (3.4-5.0) Urine Color Yellow (YELLOW) Urine Appearance Clear (CLEAR,HAZY) Urine pH 5.0 (5.0-8.0) Urine Specific [place] 1.015 (1.003-1.035) Urine Protein Negativemg/dL (NEG,TRACE) Urine Glucose (UA) Negativemg/dL (NEGATIVE) Urine Ketones Negativemg/dL (NEGATIVE) Urine Occult Blood Negative (NEGATIVE) Urine Nitrite Negative (NEGATIVE) Urine Bilirubin Negative (NEGATIVE) Urine Urobilinogen Normalmg/dL (NORMAL) Urine Leukocyte Esterase Negative (NEGATIVE) Urine RBC 0-2/hpf (0-2) Urine WBC 0-5/hpf (0-5) Urine Epithelial Cells Occasional/hpf (NONE-MOD) Urine Crystals None seen (NONE SEEN) Urine Bacteria Few/hpf (NONE-FEW) Urine Hyaline Casts None/lpf (NONE) Urine Granular Casts None seen (NONE SEEN) Urine Waxy Casts None seen (NONE SEEN) Urine Red Blood Cell Casts None seen (NONE SEEN) Urine White Blood Cell Casts None seen (NONE SEEN) Urine Mucus Present (None Seen) Urine Trichomonas None seen (NONE SEEN) Urine Yeast None (NONE SEEN) Urinalysis Comment None Urine Culture Reflexed Not indicated Re-Eval/Medical Decision Med Decision/Clinical Course 58-year-old male with history of diabetes and hypertension presents with sudden onset lower abdominal crampy pain. He states that it began about 15 minutes ago while he was driving. It is been intermittent until presentation. Recent history of gastritis, pneumonia treated with antibiotics and watery diarrhea which stopped 2 days ago. Physical examination is benign with no abdominal tenderness or pulsatile mass felt. Patient does have 2+ pitting edema in the left leg to mid [place] and in the right leg to the ankle. He states this has been present for 7 months and is followed at [facility]. CBC reveals mild leukocytopenia which is consistent with his last record from approximately 1 week ago. Blood glucose is normal nonfasting range. Urinalysis negative. On reassessment the patient states his pain is resolved upon treatment with 1 L NS as well as acetaminophen. While I cannot say why he felt this pain, low suspicion is low for dangerous or treatable conditions such as appendicitis, diverticulitis, UTI, nephrolithiasis, small bowel obstruction. Considered the possibility of AAA, however the patient has no smoking history and had a normal aorta measured on CT scan one year ago. Discharged patient with instructions for primary care follow-up and emergent return precautions. Patient understands and agrees with the plan. Discharge & Departure Primary Impression: Abdominal pain Abdominal location: lower abdomen Qualified Code: R10.30 - Lower abdominal pain, unspecified Disposition: Home Vital Signs - All Vital Signs Date Time Temp Pulse Resp B/P Pulse Ox O2 Delivery O2 Flow Rate FiO2 08/29/16 10:58 36.2 67 16 151/81 95 Room Air )( All Prior VS Reviewed: Yes Condition: Stable Patient Instructions: Acute Abdominal Pain (ED) Additional Instructions: Evaluation in the emergency department for lower abdominal pain. History, physical, blood tests and urinalysis are reassuring that there is not immediately dangerous cause for your pain. It also sounds as though your pain has resolved while you have been in the department. While it is difficult for me to say exactly why you felt this pain, I do believe you are stable and safe to be discharged home. Please follow-up with your primary care provider in the next few days. Return to the emergency department for any new or worsening symptoms such as increasing pain, fever, bloody/black/tarry stools. Referrals: Frannie Chi MD (PCP) EDSupervising Provider for APC: Bradley Palomares DO copies to: Frannie Chi MD, Seth PA-C Aug 29, 2016 11:28
[2016-08-29 11:41] LABS: BASOPHILS % (AUTO) 0.3 % (0-3); EOSINOPHILS % (AUTO) 7.1 % (0-5); MONOCYTES % (AUTO) 7.4 % (4-12); Mean Corpuscular Hemoglobin 28.8 pg (27.0-35.0); NEUTROPHILS % (AUTO) 54.4 % (40-74); Platelet Count 158 bil/L (150-400)
[2016-08-29 11:55] LABS: APPEARANCE,URINE CLEAR (CLEAR,HAZY); COLOR,URINE YELLOW (YELLOW); OCCULT BLOOD,URINE NEGATIVE (NEGATIVE); UROBILINOGEN,URINE NORMAL (NORMAL)
[2016-08-29 12:46] VITALS: BP 181/80; PULSE 63; RESP 20; O2SAT 96
[2016-08-29 12:54] VITALS: BP 181/81; PULSE 67; RESP 16; O2SAT 95
== END 2016-08-29 12:36 | disposition home or self-care (01) ==
LOC: SED 10:56
DX: R10.30 Lower abdominal pain, unspecified (principal); E11.9 Type 2 diabetes mellitus without complications; I10 Essential (primary) hypertension; E78.5 Hyperlipidemia, unspecified; Z86.73 Personal history of transient ischemic attack (TIA), and cerebral infarction without residual deficits; Z79.82 Long term (current) use of aspirin; Z79.4 Long term (current) use of insulin; Z79.84 Long term (current) use of oral hypoglycemic drugs; Z88.0 Allergy status to penicillin
CPT/HCPCS: 36415; 80053; 81000; 85025; 96360; 99284; J7030